=== PATIENT | male | born 1990 | race African-American/Black ===

== ENCOUNTER 2024-11-01 14:58 | Emergency (ER) | payer MEDICARE, SELFPAY ==
[2024-11-01 15:16] VITALS: BP 142/100
--- NOTE | 2024-11-01 17:37 | ED.GENMED ---
History of Present Illness
<Yazan Felton PA-C - Last Filed: 11/02/24 20:05>
General
Chief Complaint: Breathing Problem
Source: patient
Exam Limitations: none
Time Seen by Provider: 11/01/24 16:48
History of Present Illness
History of Present Illness:
34-year-old male presents for evaluation of leg swelling and potential pneumonia. He was at [facility] [place] ago for similar symptoms and was diagnosed with pneumonia. He is going to be getting medicine over the IV but he got anxious so he
left. He is have been here before. He is quite healthy otherwise however he is on Suboxone Xanax and Adderall daily. No allergies to medicine. He notes he does feel short of breath. The shortness of breath started today. At the onset of
symptoms of cough and congestion he noted a fever as well.
Past History
<Yazan Felton PA-C - Last Filed: 11/02/24 20:05>
Past History
ED Past Medical History: None
Social History
Alcohol: Chronic alcoholic
Personal: Single
Living: with family
Phy Exam
<KELLY Brown Last Filed: 11/02/24 20:05>
Physical Exam
Physical Exam:
General: Well-appearing male slightly anxious no acute respiratory distress HEENT normocephalic atraumatic
Heart: Regular rate and rhythm lungs: Clear no wheeze
Extremities significant pitting edema bilateral lower extremities from the mid sepulveda down
Vascular 2+ DP pulse bilateral feet
Course
<KELLY Brown Last Filed: 11/02/24 20:05>
Orders/Labs/Results
Orders:
Orders
11/01/24 17:07
CR Chest - 2 Views Urgent
Comment:
Reason For Exam: sob
11/01/24 17:52
Complete Blood Count/With Diff Urgent
Comprehensive Metabolic Panel Urgent
Creatine Phosphokinase Urgent
NT-proBNP Urgent
Troponin I Urgent
11/01/24 18:30
Add On- LAB Urgent
Tests Added?: cpk
11/01/24 23:46
Crisis Consult Urgent
Reason for Consult: anxiety
Drug Screen, Urine [Urine Drug Abuse Screen] Urgent
Date Specimen was Collected: 11/02/24
Time Specimen was Collected: 01:08
0.9% Sodium Chloride 1000 ml [Nss] 1,000 ml IV BOLUS
Azithromycin 500 mg/250 ml [Zithromax Infusion] 500 mg in 250 ml IV NOW
11/02/24 01:09
Fentanyl, Urine Urgent
Abnormal Lab Results
11/01/24 11/02/24
17:52 01:09
RBC 3.65 L 10^6/uL
(4.70-6.10)
Hgb 10.6 L g/dL
(13.0-18.0)
Hct 32.6 L %
(39.0-52.0)
MCHC 32.5 L g/dL
(33.0-37.0)
Absolute Monos (auto) 0.9 H 10^3/uL
(0.1-0.6)
Lymphocytes % 19.7 L %
(20.5-51.1)
Monocytes % 13.9 H %
(1.7-9.3)
Chloride 108 H mmol/L
(98-107)
BUN 24 H mg/dl
(9-20)
Glucose 110 H mg/dl
(70-99)
ALT 81 H U/L
(0-50)
Alkaline Phosphatase 163 H U/L
(38-126)
Creatine Kinase 1380 H U/L
(55-170)
Ur Buprenorphine Positive H
(Negative)
Ur Amphetamines Screen Positive H
(Negative)
U Methamphetamines Scrn Positive H
(Negative)
U Benzodiazepines Scrn Positive H
(Negative)
Urine Cocaine Screen Positive H
(Negative)
11/01/24 17:52
11/01/24 17:52
Vital Signs
Initial and Last Documented VS:
Initial Vital Signs
Temp Pulse Resp BP Pulse Ox
99.0 F 100 18 142/100 97
11/01/24 15:16 11/01/24 15:16 11/01/24 15:16 11/01/24 15:16 11/01/24 15:16
Last Documented Vital Signs
Temp Pulse Resp BP Pulse Ox
98.3 F 84 16 131/103 98
11/01/24 19:24 11/02/24 00:00 11/02/24 00:00 11/02/24 00:00 11/02/24 00:00
<Graciela Kaiser MD - Last Filed: 11/02/24 03:23>
Orders/Labs/Results
Orders:
Orders
11/01/24 17:07
CR Chest - 2 Views Urgent
Comment:
Reason For Exam: sob
11/01/24 17:52
Complete Blood Count/With Diff Urgent
Comprehensive Metabolic Panel Urgent
Creatine Phosphokinase Urgent
NT-proBNP Urgent
Troponin I Urgent
11/01/24 18:30
Add On- LAB Urgent
Tests Added?: cpk
11/01/24 23:46
Crisis Consult Urgent
Reason for Consult: anxiety
Drug Screen, Urine [Urine Drug Abuse Screen] Urgent
Date Specimen was Collected: 11/02/24
Time Specimen was Collected: 01:08
0.9% Sodium Chloride 1000 ml [Nss] 1,000 ml IV BOLUS
Azithromycin 500 mg/250 ml [Zithromax Infusion] 500 mg in 250 ml IV NOW
11/02/24 01:09
Fentanyl, Urine Urgent
Abnormal Lab Results
11/01/24 11/02/24
17:52 01:09
RBC 3.65 L 10^6/uL
(4.70-6.10)
Hgb 10.6 L g/dL
(13.0-18.0)
Hct 32.6 L %
(39.0-52.0)
MCHC 32.5 L g/dL
(33.0-37.0)
Absolute Monos (auto) 0.9 H 10^3/uL
(0.1-0.6)
Lymphocytes % 19.7 L %
(20.5-51.1)
Monocytes % 13.9 H %
(1.7-9.3)
Chloride 108 H mmol/L
(98-107)
BUN 24 H mg/dl
(9-20)
Glucose 110 H mg/dl
(70-99)
ALT 81 H U/L
(0-50)
Alkaline Phosphatase 163 H U/L
(38-126)
Creatine Kinase 1380 H U/L
(55-170)
Ur Buprenorphine Positive H
(Negative)
Ur Amphetamines Screen Positive H
(Negative)
U Methamphetamines Scrn Positive H
(Negative)
U Benzodiazepines Scrn Positive H
(Negative)
Urine Cocaine Screen Positive H
(Negative)
11/01/24 17:52
11/01/24 17:52
Vital Signs
Initial and Last Documented VS:
Initial Vital Signs
Temp Pulse Resp BP Pulse Ox
99.0 F 100 18 142/100 97
11/01/24 15:16 11/01/24 15:16 11/01/24 15:16 11/01/24 15:16 11/01/24 15:16
Last Documented Vital Signs
Temp Pulse Resp BP Pulse Ox
98.3 F 84 16 131/103 98
11/01/24 19:24 11/02/24 00:00 11/02/24 00:00 11/02/24 00:00 11/02/24 00:00
<Yazan Felton PA-C - Last Filed: 11/02/24 20:05>
MDM/Problems Addressed
Differential Diagnosis Includes:
Bilateral leg swelling cough fever. He was told he had pneumonia 2 days ago and he was at [facility] [place]. He left from what sounds like against the recommendations. Will repeat x-ray get blood work today other items in differential could
include CHF
<Yazan Felton PA-C - Last Filed: 11/02/24 20:05>
*Critical Care Note
Total Time (30-74mins, 75-104mins- exclusive of procedures): Not Applicable
ED Attending Note
<Yazan Felton PA-C - Last Filed: 11/02/24 20:05>
-
Portions of this chart may have been created with voice recognition software.� Occasional wrong word or��sound alike� substitutions may have occurred due to the inherent limitations of voice recognition software.
<Graciela Kaiser MD - Last Filed: 11/02/24 03:23>
ED Attending Note
Patient seen and examined by attending physician: Yes
I performed the substantive portion of visit, reviewed & personally made and approve the management plan that is documented in note by myself or VIOLETTA.: Yes
ED Attending Note:
Patient remains cooperative and relatively calm. Patient will go to inpatient psych facility
Discharge Plan
Departure
Patient Disposition: Home (Routine Discharge)
Date of Disposition: 11/02/24
Time of Disposition: 03:19
Patient Status:: 201
Patient with high blood pressure during this ER visit?: Yes
Condition: Fair
Discharge Problem:
Acute anxiety
Instructions: Anxiety in adults - ED discharge instructions
Prescriptions:
New
azithromycin 250 mg tablet
250 mg PO DAILY Qty: 4 0RF
No Action
No Meds [No Current Medications]
0
Referrals:
PRIVATE,PHYSICIAN [Family Provider, Internal Medicine]
Activity Restrictions/Additional Instructions:
As discussed, please follow-up with your primary care physician for further evaluation and treatment. Strongly recommend repeating blood work as an outpatient along with increased hydration, as some values were abnormal, which also may be secondary
to your use.
Interventions
Interventions:
*Risk Screen - Suicide Last Done: 11/01/24 17:54
*General Assessment Last Done: 11/01/24 15:16
*Neglect/Abuse Screening Last Done: 11/01/24 15:16
*ED- Fall Risk Assessment Last Done: 11/02/24 04:14
*ED COVID-19 Vaccine History Last Done: 11/01/24 15:16
*Nursing Disposition Last Done: 11/02/24 05:08
ED- Cardiac Assessment Last Done: 11/01/24 18:16
ED- Pulmonary Assessment Last Done: 11/01/24 18:16
Discharge Date and Time
Discharge Date/Time: 11/02/24 05:08
Print Language: CROATIAN
[2024-11-01 17:43] VITALS: BMI 22.5
[2024-11-01 18:06] LABS: % Basophils 0.6 % (0-2); % Eosinophils 1.3 % (0-6); % Immature Granulocytes 0.3 % (0-0.5); % Lymphocytes 19.7 % (20.5-51.1); % Monocytes 13.9 % (1.7-9.3); % Neutrophils 64.2 % (42.2-75.2); Absolute Eosinophils 0.1 10^3/uL (0-0.7); Absolute Lymphocytes 1.3 10^3/uL (1.2-3.4); Absolute Monocytes 0.9 10^3/uL (0.1-0.6); Absolute Neutrophils 4.1 10^3/uL (1.4-6.5); Hematocrit 32.6 % (39.0-52.0); Hemoglobin 10.6 g/dL (13.0-18.0); Mean Corp Hgb Conc. 32.5 g/dL (33.0-37.0); Mean Corpuscular Volume 89.3 fL (80.0-94.0); Mean Platelet Volume 8.7 fL (7.4-10.4); Nucleated Red Blood Cells % 0 % (-); Platelet Count 358 10^3/uL (130-400); Red Blood Cell Count 3.65 10^6/uL (4.70-6.10); Red Cell Dist. Width 12.9 % (11.5-14.5); White Blood Cell Count 6.4 10^3/uL (4.8-10.8)
[2024-11-01 18:24] LABS: ALT (SGPT) 81 U/L (0-50); AST (SGOT) 54 U/L (17-59); Albumin 4.1 g/dl (3.5-5.0); Alkaline Phosphatase 163 U/L (38-126); Blood Urea Nitrogen 24 mg/dl (9-20); Calcium 8.9 mg/dl (8.4-10.2); Carbon Dioxide 25 mmol/L (22-30); Chloride 108 mmol/L (98-107); Estimated Creatinine Clearance > 125 ml/min; Glucose 110 mg/dl (70-99); Potassium 3.6 mmol/L (3.5-5.1); Sodium 142 mmol/L (135-145); Total Bilirubin 1.3 mg/dl (0.2-1.3); Total Protein 7.1 g/dl (6.3-8.2); eGFR > 60.00
[2024-11-01 18:29] LABS: NT-proBNP 200 pg/ml; Troponin I < 0.012 ng/ml
[2024-11-01 18:58] LABS: Creatine Phosphokinase 1380 U/L (55-170)
[2024-11-01 19:24] VITALS: BP 149/82
[2024-11-01] MEDS: NSS 1000 IV (23:52)
[2024-11-01] MEDS: ZITHROMAX INFUSION 250 IV (23:57)
[2024-11-02] VITALS: BP 131/103
[2024-11-02 01:36] LABS: Amphetamines Positive (Negative); Benzodiazepines Positive (Negative); Cocaine Positive (Negative); Methamphetamines Positive (Negative)
[2024-11-02 01:37] LABS: Barbiturates Negative (Negative); Buprenorphine Positive (Negative); Marijuana Negative (Negative); Methadone Negative (Negative); Opiates Negative (Negative); Phencyclidine Negative (Negative); Tricyclic Antidepressants Negative (Negative)
[2024-11-02 01:59] LABS: Fentanyl, Urine Negative (Negative)
== END 2024-11-02 05:08 | disposition home or self-care (01) ==
LOC: EMR 14:58
PROVIDERS: Physician Assistant; EMERGENCY PHYSICIAN Emergency Medicine
DX: F41.9 Anxiety disorder, unspecified (principal); Z79.899 Other long term (current) drug therapy
CPT/HCPCS: 99283; 96360; 71046; 80053; 80306; 80307; 82550; 83880; 84484; 85025